=== PATIENT | female | born 1985 | race Caucasian/White ===

== ENCOUNTER 2020-10-18 11:37 | Outpatient (CLI) | payer OTHER ==
[~2020-10-18 11:37] MED LIST: CLARITIN10 MG PO; COLACE 100MG C100 MG PO; CYCLOBENZAPRINE10 MG PO; PERCOCET 5/325 T1 EA PO; VALTREX500 MG PO; ZOFRAN4 MG PO
== END 2020-10-18 15:02 | disposition home or self-care (01) ==
LOC: GENOP 11:37
DX: O62.9 Abnormality of forces of labor, unspecified (principal); O98.512 Other viral diseases complicating pregnancy, second trimester; O99.012 Anemia complicating pregnancy, second trimester; O99.342 Other mental disorders complicating pregnancy, second trimester; B00.9 Herpesviral infection, unspecified; Z3A.18 18 weeks gestation of pregnancy
CPT/HCPCS: 59025; 81001; 96360; 96361

== ENCOUNTER 2020-10-26 11:49 | Outpatient (CLI) | payer OTHER | END 2020-10-26 13:07 | disposition home or self-care (01) | LOC: GENOP 11:49 | DX: O99.891 Other specified diseases and conditions complicating pregnancy (principal); N89.8 Other specified noninflammatory disorders of vagina; O47.03 False labor before 37 completed weeks of gestation, third trimester; O99.013 Anemia complicating pregnancy, third trimester; D64.9 Anemia, unspecified; O99.343 Other mental disorders complicating pregnancy, third trimester; F41.9 Anxiety disorder, unspecified; Z88.1 Allergy status to other antibiotic agents; Z91.040 Latex allergy status; Z3A.34 34 weeks gestation of pregnancy | CPT/HCPCS: 81001; 83518; G0463 ==

== ENCOUNTER 2020-11-05 11:20 | Outpatient (CLI) | payer OTHER | END 2020-11-05 16:09 | disposition home or self-care (01) | LOC: GENOP 11:20 | DX: O62.9 Abnormality of forces of labor, unspecified (principal); Z3A.00 Weeks of gestation of pregnancy not specified | CPT/HCPCS: 81001; 83518; G0463 ==

== ENCOUNTER 2020-11-14 14:32 | Inpatient (IN) | payer OTHER ==
[2020-11-14 15:52] LABS: HEMOGLOBIN 12.6 gm/dl (12.3-15.3); RED BLOOD COUNT 4.63 M/UL (4.00-5.10); WHITE BLOOD COUNT 10.7 K/UL (4.5-11.0)
[2020-11-14] MEDS ORDERED: DOCUSATE SODIU250 MG PO (20:07)
[2020-11-14] MEDS ORDERED: IBUPROFEN600 MG PO (20:07)
[2020-11-15 06:54] LABS: HEMOGLOBIN 11.2 gm/dl (12.3-15.3)
[2020-11-16] MEDS ORDERED: HYDROCODON-ACE1 EAC4 PO (10:11)
== END 2020-11-16 17:23 | disposition home or self-care (01) | DRG 807 ==
LOC: GENOP 14:32 → OB 15:37
PROVIDERS: ADMIT Obstetrics & Gynecology
PROC: 10E0XZZ Delivery of Products of Conception, External Approach (ICD-10-PCS; principal; 2020-11-14)
PROC: 10907ZC Drainage of Amniotic Fluid, Therapeutic from Products of Conception, Via Natural or Artificial Opening (ICD-10-PCS; 2020-11-14)
PROC: 4A1HXCZ Monitoring of Products of Conception, Cardiac Rate, External Approach (ICD-10-PCS; 2020-11-14)
DX: O66.9 Obstructed labor, unspecified (principal); Z37.0 Single live birth; Z3A.36 36 weeks gestation of pregnancy; O13.4 Gestational [pregnancy-induced] hypertension without significant proteinuria, complicating childbirth; O36.63X0 Maternal care for excessive fetal growth, third trimester, not applicable or unspecified; O99.344 Other mental disorders complicating childbirth; F41.9 Anxiety disorder, unspecified; Z20.822 Contact with and (suspected) exposure to COVID-19
CPT/HCPCS: 36415; 81001; 82800; 85014; 85018; 85025; J2001; J2405; J2590; J2795; J3010; U0002

== ENCOUNTER → 2021-06-04 | Outpatient (CLI) | payer OTHER ==
[~2021-06-04] MED LIST changes: +DOCUSATE SODIU250 MG PO; +HYDROCODON-ACE1 EAC4 PO; +IBUPROFEN600 MG PO
== END ==
LOC: KOH-I 15:00
DX: O26.892 Other specified pregnancy related conditions, second trimester (principal); M79.604 Pain in right leg
CPT/HCPCS: 93971

== ENCOUNTER → 2021-10-22 | Outpatient (CLI) | payer OTHER | LOC: US 12:30 | DX: O26.833 Pregnancy related renal disease, third trimester (principal); Z3A.00 Weeks of gestation of pregnancy not specified ==

== ENCOUNTER 2021-10-29 16:41 | Outpatient (CLI) | payer OTHER | END 2021-10-29 21:38 | disposition home or self-care (01) | LOC: GENOP 16:41 | DX: O47.1 False labor at or after 37 completed weeks of gestation (principal); O99.343 Other mental disorders complicating pregnancy, third trimester; F41.9 Anxiety disorder, unspecified; Z3A.37 37 weeks gestation of pregnancy | CPT/HCPCS: 81001; G0463 ==

== ENCOUNTER 2021-11-06 05:24 | Inpatient (IN) | payer OTHER ==
[~2021-11-06] VITALS: Ht 162.6 cm; Wt 77.6 kg
[2021-11-06] MEDS ORDERED: PEPCID20 MG PO (06:44)
[2021-11-06] MEDS ORDERED: PRENATAL VITAM1 EAC5 PO (06:44)
[2021-11-06] MEDS ORDERED: COLACE 100MG C100 MG PO (06:45)
[2021-11-06] MEDS ORDERED: VISTARIL25 MG PO (06:45)
[2021-11-06] MEDS ORDERED: FERROUS SULFAT325 MG PO (06:45)
[2021-11-06] MEDS ORDERED: VALTREX1000 MG PO (06:46)
[2021-11-06] MEDS ORDERED: AMOXICILLIN875 MG PO (06:46)
[2021-11-06 07:01] LABS: HEMOGLOBIN 12.1 gm/dl (12.3-15.3); RED BLOOD COUNT 4.49 M/UL (4.00-5.10); WHITE BLOOD COUNT 8.9 K/UL (4.5-11.0)
[2021-11-06] MEDS ORDERED: DOCUSATE SODIU250 MG PO (18:15)
[2021-11-06] MEDS ORDERED: IBUPROFEN600 MG PO (18:15)
[2021-11-07 06:23] LABS: HEMOGLOBIN 10.8 gm/dl (12.3-15.3)
== END 2021-11-07 19:55 | disposition home or self-care (01) | DRG 806 ==
LOC: OB 05:24
PROVIDERS: Obstetrics & Gynecology; ADMIT Obstetrics & Gynecology
PROC: 10E0XZZ Delivery of Products of Conception, External Approach (ICD-10-PCS; principal; 2021-11-06)
PROC: 4A1HXCZ Monitoring of Products of Conception, Cardiac Rate, External Approach (ICD-10-PCS; 2021-11-06)
DX: O24.420 Gestational diabetes mellitus in childbirth, diet controlled (principal); O98.52 Other viral diseases complicating childbirth; Z37.0 Single live birth; Z20.822 Contact with and (suspected) exposure to COVID-19; B00.9 Herpesviral infection, unspecified; Z3A.38 38 weeks gestation of pregnancy; Z28.310 Unvaccinated for COVID-19; Z91.040 Latex allergy status; Z88.1 Allergy status to other antibiotic agents; Z82.49 Family history of ischemic heart disease and other diseases of the circulatory system; Z83.3 Family history of diabetes mellitus; Z81.8 Family history of other mental and behavioral disorders
CPT/HCPCS: 36415; 81001; 82962; 85014; 85018; 85025; J2405; J2590; J7120